=== PATIENT | female | born 1995 | race Caucasian/White ===

== ENCOUNTER 2023-04-02 07:28 | Emergency (ER) | payer MEDICAID ==
[~2023-04-02] VITALS: Ht 165.1 cm; Wt 51.3 kg
[2023-04-02 08:25] LABS: ADD URINE CULTURE YES; APPEARANCE,URINE TURBID (CLEAR); BILIRUBIN,URINE NEGATIVE (NEGATIVE); BLOOD, URINE 3+ Ery/uL (NEGATIVE); COLOR,URINE DARK YELLOW (YELLOW); KETONES,URINE NEGATIVE (NEGATIVE); LEUKOCYTE ESTERASE ,URINE 1+ (NEGATIVE); NITRITE, URINE POSITIVE (NEGATIVE); PH,URINE 5.5 (5.0-8.0); PROTEIN,URINE 2+ mg/dl (NEGATIVE); SQUAMOUS EPITHELIAL CELL,UR Rare /HPF (None Seen); UGLUCOSE NEGATIVE (NEGATIVE); UROBILINOGEN,URINE 0.2 EU/dL (0.2)
[2023-04-02 08:26] LABS: BACTERIA,URINE Moderate /HPF (None Seen); PREGNANCY TEST URINE QUAL NEGATIVE (NEGATIVE)
[2023-04-02] MEDS ORDERED: NITR100C6 PO (08:31)
[2023-04-02] MEDS ORDERED: IBUPROFEN 600 MG TABLET ONE (08:40)
[2023-04-02] MEDS: IBUPROFEN 600 MG TABLET PO ONE (08:42)
[2023-04-02 08:54] VITALS: BP 117/68; TEMP 98.1; O2SAT 98
== END 2023-04-02 08:55 | disposition home or self-care (01) ==
LOC: EDSEX 07:28 → ER 07:28
DX: N39.0 Urinary tract infection, site not specified (principal)
CPT/HCPCS: 81001; 84703-TC; 87086-TC